=== PATIENT | female | born 2000 | race Two or more races ===

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

== ENCOUNTER 2022-09-26 09:45 | Emergency (ER) | payer BC ==
[2022-09-26 09:58] VITALS: BP 114/77; RESP 16; TEMP 98.3
[2022-09-26 10:38] VITALS: PULSE 90
== END 2022-09-26 10:37 | disposition home or self-care (01) ==
LOC: JERFT 09:45
DX: S61.052A Open bite of left thumb without damage to nail, initial encounter (principal); W54.0XXA Bitten by dog, initial encounter; Y93.K9 Activity, other involving animal care; Y92.9 Unspecified place or not applicable
CPT/HCPCS: 99283-25